=== PATIENT | male | born 1985 | race African-American/Black ===

== ENCOUNTER 2017-09-06 14:51 | Emergency (ER) | payer SELFPAY ==
[~2017-09-06] VITALS: Ht 165.1 cm; Wt 63.6 kg
[2017-09-06 16:28] LABS: HEMATOCRIT 40.3 % (38.0-50.0); HEMOGLOBIN 13.6 G/DL (12.5-16.6); MCH 31.9 PG (29.0-34.0); MCHC 33.7 G/DL (30.0-36.0); MCV 94.4 FL (86-99); RBC DIS.WIDTH-CV 12.3 % (11.8-14.6); RBC DIS.WIDTH-SD 42.5 % (39-53); RED BLOOD COUNT 4.27 M/uL (4.00-5.50); WHITE BLOOD COUNT 5.6 K/uL (4.1-10.2)
[2017-09-06 16:39] LABS: ALBUMIN 4.6 g/dL (3.2-4.8); CHLORIDE 104 mEq/L (99-109); SODIUM 141 mEq/L (136-147)
[2017-09-06 16:41] LABS: GLUCOSE 96 mg/dL (70-99); TOTAL PROTEIN 7.7 g/dL (6.4-8.3)
[2017-09-06 16:43] LABS: TOTAL BILIRUBIN 0.3 mg/dL (0.0-1.0)
[2017-09-06 16:44] LABS: SERUM ETHYL ALCOHOL < 10 mg/dL
[2017-09-06 16:45] LABS: ALKALINE PHOSPHATASE 87 IU/L (3-129); CREATININE 0.8 mg/dL (0.6-1.3); GFR ESTIMATE (CALCULATED) > 59 mL/min/ (58.99-99999)
[2017-09-06 16:46] LABS: AST (GOT) 21 IU/L (2-34); UREA NITROGEN (BUN) 14 mg/dL (9-23)
[2017-09-06 16:48] LABS: ALT (GPT) 22 IU/L (3-49)
[2017-09-06 17:22] LABS: PLAT.SUFFICIENCY ADEQUATE
[2017-09-06 17:25] LABS: PLATELET COUNT 220 K/uL (156-360)
[2017-09-06 17:38] VITALS: BP 130/66
== END 2017-09-06 17:44 | disposition home or self-care (01) ==
LOC: EME 14:51
PROVIDERS: Emergency Medicine
DX: F20.9 Schizophrenia, unspecified (principal); T43.4X6A Underdosing of butyrophenone and thiothixene neuroleptics, initial encounter; T43.596A Underdosing of other antipsychotics and neuroleptics, initial encounter; Z91.14 Patient's other noncompliance with medication regimen; Z04.6 Encounter for general psychiatric examination, requested by authority; F17.200 Nicotine dependence, unspecified, uncomplicated
CPT/HCPCS: 80053; 81003; 85027; 90837; 99281; 99285; G0480